=== PATIENT | female | born 1995 | race Caucasian/White ===

== ENCOUNTER 2025-07-10 00:28 | Outpatient (CLI) | payer OTHER, SELFPAY | END 2025-07-10 00:29 | disposition home or self-care (01) | LOC: AMB 07-13 01:33 | PROVIDERS: Visit Provider Emergency Medicine | DX: O60.03 Preterm labor without delivery, third trimester (principal); O24.419 Gestational diabetes mellitus in pregnancy, unspecified control; Z3A.36 36 weeks gestation of pregnancy | CPT/HCPCS: A0425; A0427 ==